=== PATIENT | female | born 1950 | race Caucasian/White ===

== ENCOUNTER → 2016-07-14 | Outpatient (CLI) | payer MEDICARE, OTHER ==
--- NOTE | 2016-07-15 13:28 | MM ---
Reason for exam: screening (asymptomatic). Last mammogram was performed 1 year and 2 months ago. History: Patient is postmenopausal. Family history of breast cancer in cousin. Benign stereotactic core biopsy of the right breast, June 27, 1998. Benign stereotactic core biopsy of the right breast, October 31, 1997. Took estrogen for 16 years beginning at age 41. Physical Findings: A clinical breast exam by your physician is recommended on an annual basis and results should be correlated with mammographic findings. MG 3D Screening Mammo W/Cad Bilateral CC and MLO view(s) were taken. Prior study comparison: May 07, 2015, bilateral MG 3d screening mammo w/cad. June 29, 2012, bilateral digital screening mammo w/CAD. There are scattered fibroglandular densities. No significant changes when compared with prior studies. ASSESSMENT: Negative, BI-RAD 1 RECOMMENDATION: Routine screening mammogram of both breasts in 1 year.
== END | disposition home or self-care (01) ==
LOC: RADMAMWWP 09:34
PROVIDERS: ATTEND Family Medicine
DX: Z12.31 Encounter for screening mammogram for malignant neoplasm of breast (principal)
CPT/HCPCS: 77063; G0202

== ENCOUNTER → 2016-11-12 | Outpatient (CLI) | payer MEDICARE, OTHER ==
--- NOTE | 2016-11-12 15:19 | XR ---
EXAMINATION TYPE: XR Hip Complete RT DATE OF EXAM: 11/12/2016 CLINICAL HISTORY: Right hip pain TECHNIQUE: AP and frogleg views of the right hip are obtained. COMPARISON: None. FINDINGS: There is no acute fracture/dislocation evident in the right hip. Metallic hardware from to deb right hip arthroplasty is present. No suspicious surrounding lucency is seen. The overlying soft tissue appears unremarkable. IMPRESSION: There is prosthesis felt satisfactory in position without radiographic evidence of compl ication.
== END ==
LOC: RADXRMAIN 14:58
PROVIDERS: ATTEND Family Medicine
DX: M25.551 Pain in right hip (principal)
CPT/HCPCS: 73502

== ENCOUNTER → 2018-09-27 | Outpatient (CLI) | payer MEDICARE, OTHER ==
--- NOTE | 2018-09-27 14:25 | XR ---
EXAMINATION TYPE: XR toes LT DATE OF EXAM: 09/27/2018 COMPARISON: NONE HISTORY: Pain in the left great toe with prior great toe surgery approximately 10 years ago. TECHNIQUE: 3 views of the left foot. FINDINGS: Although there is a subtle lucency through the proximal phalanx laterally this extends past the cortex and appears to relate to and overlying structure/skinfold. This is not reproduced on the oblique or lateral view and therefore no acute fracture is seen. First metatarsal phalangeal prosthes is from prior osteotomy maintains normal alignment. Mild soft tissue swelling is seen without radiopa que foreign body. IMPRESSION: Normal alignment without acute fracture or dislocation of the left great toe. Mild soft t issue swelling is seen.
== END | disposition home or self-care (01) ==
LOC: RADXRMAIN 13:11
PROVIDERS: ATTEND Family Medicine
DX: M79.89 Other specified soft tissue disorders (principal)

== ENCOUNTER → 2019-01-19 | Outpatient (CLI) | payer MEDICARE, OTHER ==
--- NOTE | 2019-01-19 11:01 | US ---
EXAMINATION TYPE: US thyroid st tissue head/neck DATE OF EXAM: 01/19/2019 COMPARISON: NONE CLINICAL HISTORY: R22.0 Swelling, mass and palpable abnormality. Lump behind left ear. TECHNIQUE/FINDINGS: Targeted ultrasound was performed for the palpable abnormality in grayscale and c olor imaging around the patient's left ear. Corresponding to the palpable abnormality there is a supe rficial complex cystic mass with posterior enhancement seen behind left ear measuring .8 x .8 x .9 cm . No internal vascularity is seen. IMPRESSION: Superficial, complex, periventricular 0.9 cm cystic mass corresponds to the palpable abnormality. Thi s most commonly represents a sebaceous cyst. Surgical excision could be considered. If excision is fo rgone short-term follow-up ultrasound in 3-6 months could ensure resolution.
== END | disposition home or self-care (01) ==
LOC: RADUSWWP 10:25
PROVIDERS: ATTEND Family Medicine
DX: R22.0 Localized swelling, mass and lump, head (principal)
CPT/HCPCS: 76536

== ENCOUNTER → 2019-02-07 | Outpatient (CLI) | payer MEDICARE, OTHER ==
--- NOTE | 2019-02-08 12:06 | MM ---
Reason for exam: screening (asymptomatic). Last mammogram was performed 2 years and 7 months ago. History: Patient is postmenopausal. Family history of breast cancer in cousin. Benign stereotactic core biopsy of the right breast, June 27, 1998. Benign stereotactic core biopsy of the right breast, October 31, 1997. Took estrogen for 16 years beginning at age 41. Physical Findings: A clinical breast exam by your physician is recommended on an annual basis and results should be correlated with mammographic findings. MG 3D Screening Mammo W/Cad Bilateral CC and MLO view(s) were taken. Prior study comparison: July 14, 2016, bilateral MG 3d screening mammo w/cad. May 07, 2015, bilateral MG 3d screening mammo w/cad. The breast tissue is heterogeneously dense. This may lower the sensitivity of mammography. There are benign appearing round calcifications bilaterally. Previous mammotome biopsy in the right breast x 2. There is no discrete abnormality. ASSESSMENT: Benign, BI-RAD 2 RECOMMENDATION: Routine screening mammogram of both breasts in 1 year.
== END ==
LOC: RADMAMWWP 08:50
PROVIDERS: ATTEND Family Medicine
DX: Z12.31 Encounter for screening mammogram for malignant neoplasm of breast (principal)
CPT/HCPCS: 77063; 77067

== ENCOUNTER 2019-10-31 12:52 | Emergency (ER) | payer MEDICARE, OTHER ==
[2019-10-31 13:10] VITALS: TEMP 97.9
[2019-10-31] MEDS ORDERED: SODIUM CHLORIDE 0.9% 1,000 ML IV STA (13:30)
[2019-10-31] MEDS ORDERED: MECLIZINE 12.5 MG TAB PO STA (13:30)
--- NOTE | 2019-10-31 13:44 | ED ---
Dizziness HPI - General Chief Complaint: Dizziness Stated Complaint: Dizziness Time Seen by Provider: 10/31/19 13:14 Source: patient Mode of arrival: wheelchair Limitations: no limitations - History of Present Illness Initial Comments: This a 60-year-old female with no prior history of neurological disorders or vertigo who states she woke up this morning dizzy and states she still has episodes of dizziness especially when she is in upright position or with head movement. No recent colds flu fevers chills nausea vomiting sweats no cough or phlegm production. She states for the most part she sustained home because of the current pandemic. No focal weakness no other modifying factors at this time. MD Complaint: dizziness - Related Data Home Medications Medication Instructions Recorded Confirmed DULoxetine HCL [Cymbalta] 60 mg PO BID 10/31/19 10/31/19 Lansoprazole 15 mg PO DAILY 10/31/19 10/31/19 Lisinopril [Zestril] 10 mg PO DAILY 10/31/19 10/31/19 Meloxicam [Mobic] 15 mg PO DAILY 10/31/19 10/31/19 QUEtiapine [SEROquel] 25 mg PO HS 10/31/19 10/31/19 Simvastatin [Zocor] 40 mg PO HS 10/31/19 10/31/19 Previous Rx's Medication Instructions Recorded Meclizine [Antivert] 25 mg PO TID #20 tab 10/31/19 Allergies Allergy/AdvReac Type Severity Reaction Status Date / Time hydromorphone [From Dilaudid] Allergy Nausea & Verified 10/31/19 14:46 Vomiting Iodinated Contrast Media Allergy Rash/Hives Verified 10/31/19 14:46 meperidine [From Demerol] Allergy Nausea & Verified 10/31/19 14:46 Vomiting Review of Systems ROS Statement: Those systems with pertinent positive or pertinent negative responses have been documented in the HPI. ROS Other: All systems not noted in ROS Statement are negative. Past Medical History Past Medical History: Hyperlipidemia, Hypertension History of Any Multi-Drug Resistant Organisms: None Reported Past Surgical History: Hysterectomy, Orthopedic Surgery Additional Past Surgical History / Comment(s): rhinoplasty Past Psychological History: No Psychological Hx Reported Smoking Status: Never smoker Past Alcohol Use History: None Reported Past Drug Use History: None Reported General Exam - General Exam Comments Initial Comments: This is a well-developed well-nourished awake alert oriented 3 female Limitations: no limitations General appearance: alert, in no apparent distress Head exam: Present: atraumatic, normocephalic, normal inspection Eye exam: Present: normal appearance, PERRL, EOMI. Absent: scleral icterus, conjunctival injection, periorbital swelling ENT exam: Present: normal exam, mucous membranes moist Neck exam: Present: normal inspection, full ROM, other (No stridor JVD or bruits). Absent: tenderness, meningismus, lymphadenopathy Respiratory exam: Present: normal lung sounds bilaterally. Absent: respiratory distress, wheezes, rales, rhonchi, stridor Cardiovascular Exam: Present: regular rate, normal rhythm, normal heart sounds. Absent: systolic murmur, diastolic murmur, rubs, gallop, clicks GI/Abdominal exam: Present: soft, normal bowel sounds. Absent: distended, tenderness, guarding, rebound, rigid Extremities exam: Present: normal inspection, full ROM, normal capillary refill. Absent: tenderness, pedal edema, joint swelling, calf tenderness Back exam: Present: normal inspection Neurological exam: Present: alert, oriented X3, CN II-XII intact Psychiatric exam: Present: normal affect, normal mood Skin exam: Present: warm, dry, intact, normal color. Absent: rash Course Vital Signs 10/31/19 13:01 Temperature 97.9 F Pulse Rate 85 Respiratory 18 Rate Blood Pressure 154/80 O2 Sat by Pulse 97 Oximetry EKG Findings - EKG Results: EKG: interpreted by ERMD, sinus rhythm (Sinus rhythm rate of 86 FL interval 168 QRS duration 92 QT since QTC 394/471 evidence of possible old inferior changes) Medical Decision Making - Medical Decision Making Patient is feeling improved she'll be discharged the presentation is consistent with benign proximal vertigo. We did discuss this. Patient will be discharged and follow-up with her doctor return when necessary - Lab Data Result diagrams: 10/31/19 13:56 10/31/19 13:56 Lab Results 10/31/19 10/31/19 10/31/19 Range/Units 13:56 13:56 13:56 WBC 7.9 (3.8-10.6) k/uL RBC 4.68 (3.80-5.40) m/uL Hgb 13.6 (11.4-16.0) gm/dL Hct 41.6 (34.0-46.0) % MCV 88.8 (80.0-100.0) fL MCH 29.0 (25.0-35.0) pg MCHC 32.7 (31.0-37.0) g/dL RDW 13.0 (11.5-15.5) % Plt Count 339 (150-450) k/uL Neutrophils % 67 % Lymphocytes % 21 % Monocytes % 6 % Eosinophils % 3 % Basophils % 1 % Neutrophils # 5.3 (1.3-7.7) k/uL Lymphocytes # 1.6 (1.0-4.8) k/uL Monocytes # 0.5 (0-1.0) k/uL Eosinophils # 0.3 (0-0.7) k/uL Basophils # 0.1 (0-0.2) k/uL Sodium 137 (137-145) mmol/L Potassium 4.5 (3.5-5.1) mmol/L Chloride 107 (98-107) mmol/L Carbon Dioxide 22 (22-30) mmol/L Anion Gap 8 mmol/L BUN 14 (7-17) mg/dL Creatinine 0.72 (0.52-1.04) mg/dL Est GFR (CKD-EPI)AfAm >90 (>60 ml/min/1.73 sqM) Est GFR (CKD-EPI)NonAf 87 (>60 ml/min/1.73 sqM) Glucose 134 H (74-99) mg/dL Calcium 9.4 (8.4-10.2) mg/dL Magnesium 2.0 (1.6-2.3) mg/dL Total Bilirubin 0.5 (0.2-1.3) mg/dL AST 31 (14-36) U/L ALT 19 (4-34) U/L Alkaline Phosphatase 117 (38-126) U/L Troponin I <0.012 (0.000-0.034) ng/mL Total Protein 6.9 (6.3-8.2) g/dL Albumin 4.3 (3.5-5.0) g/dL Urine Color Urine Appearance (Clear) Urine pH (5.0-8.0) Ur Specific Jones (1.001-1.035) Urine Protein (Negative) Urine Glucose (UA) (Negative) Urine Ketones (Negative) Urine Blood (Negative) Urine Nitrite (Negative) Urine Bilirubin (Negative) Urine Urobilinogen (<2.0) mg/dL Ur Leukocyte Esterase (Negative) Urine RBC (0-5) /hpf Urine WBC (0-5) /hpf Ur Squamous Epith Cells (0-4) /hpf Urine Mucus (None) /hpf 10/31/19 Range/Units 15:27 WBC (3.8-10.6) k/uL RBC (3.80-5.40) m/uL Hgb (11.4-16.0) gm/dL Hct (34.0-46.0) % MCV (80.0-100.0) fL MCH (25.0-35.0) pg MCHC (31.0-37.0) g/dL RDW (11.5-15.5) % Plt Count (150-450) k/uL Neutrophils % % Lymphocytes % % Monocytes % % Eosinophils % % Basophils % % Neutrophils # (1.3-7.7) k/uL Lymphocytes # (1.0-4.8) k/uL Monocytes # (0-1.0) k/uL Eosinophils # (0-0.7) k/uL Basophils # (0-0.2) k/uL Sodium (137-145) mmol/L Potassium (3.5-5.1) mmol/L Chloride (98-107) mmol/L Carbon Dioxide (22-30) mmol/L Anion Gap mmol/L BUN (7-17) mg/dL Creatinine (0.52-1.04) mg/dL Est GFR (CKD-EPI)AfAm (>60 ml/min/1.73 sqM) Est GFR (CKD-EPI)NonAf (>60 ml/min/1.73 sqM) Glucose (74-99) mg/dL Calcium (8.4-10.2) mg/dL Magnesium (1.6-2.3) mg/dL Total Bilirubin (0.2-1.3) mg/dL AST (14-36) U/L ALT (4-34) U/L Alkaline Phosphatase (38-126) U/L Troponin I (0.000-0.034) ng/mL Total Protein (6.3-8.2) g/dL Albumin (3.5-5.0) g/dL Urine Color Yellow Urine Appearance Clear (Clear) Urine pH 5.5 (5.0-8.0) Ur Specific Jones 1.008 (1.001-1.035) Urine Protein Negative (Negative) Urine Glucose (UA) Negative (Negative) Urine Ketones Negative (Negative) Urine Blood Trace H (Negative) Urine Nitrite Negative (Negative) Urine Bilirubin Negative (Negative) Urine Urobilinogen <2.0 (<2.0) mg/dL Ur Leukocyte Esterase Moderate H (Negative) Urine RBC 2 (0-5) /hpf Urine WBC 12 H (0-5) /hpf Ur Squamous Epith Cells <1 (0-4) /hpf Urine Mucus Rare H (None) /hpf - Radiology Data Radiology results: report reviewed (I did review the imaging and report no acute findings.), image reviewed Disposition Clinical Impression: Benign paroxysmal positional vertigo Disposition: HOME SELF-CARE Condition: Good Instructions (If sedation given, give patient instructions): Benign Paroxysmal Positional Vertigo (ED) Prescriptions: Meclizine [Antivert] 25 mg PO TID #20 tab Is patient prescribed a controlled substance at d/c from ED?: No Referrals: Ismael Boss DO [Primary Care Provider] - 1-2 days
[2019-10-31 14:11] LABS: Basophils # (A) 0.1 k/uL (0-0.2); Basophils % (A) 1 %; Eosinophils # (A) 0.3 k/uL (0-0.7); Eosinophils % (A) 3 %; HCT 41.6 % (34.0-46.0); HGB 13.6 gm/dL (11.4-16.0); Lymphocytes # (A) 1.6 k/uL (1.0-4.8); Lymphocytes % (A) 21 %; MCHC 32.7 g/dL (31.0-37.0); MCV 88.8 fL (80.0-100.0); Mean Platelet Volume 6.9; Monocytes # (A) 0.5 k/uL (0-1.0); Monocytes % (A) 6 %; Neutrophils # (A) 5.3 k/uL (1.3-7.7); Neutrophils % (A) 67 %; Platelet Count 339 k/uL (150-450); RBC 4.68 m/uL (3.80-5.40); WBC 7.9 k/uL (3.8-10.6)
[2019-10-31 14:20] LABS: ALT 19 U/L (4-34); AST 31 U/L (14-36); African American GFR (CKD) >90 (>60 ml/min/1.73 sqM); Albumin 4.3 g/dL (3.5-5.0); Alkaline Phosphatase 117 U/L (38-126); Anion Gap 8 mmol/L; Blood Urea Nitrogen 14 mg/dL (7-17); Calcium 9.4 mg/dL (8.4-10.2); Carbon Dioxide 22 mmol/L (22-30); Chloride 107 mmol/L (98-107); Glucose 134 mg/dL (74-99); Non-African American GFR(CKD) 87 (>60 ml/min/1.73 sqM); Potassium 4.5 mmol/L (3.5-5.1); Sodium 137 mmol/L (137-145); Total Bilirubin 0.5 mg/dL (0.2-1.3); Total Protein 6.9 g/dL (6.3-8.2)
--- NOTE | 2019-10-31 14:37 | XR ---
EXAMINATION TYPE: XR chest 2V DATE OF EXAM: 10/31/2019 COMPARISON: 04/30/2015 INDICATION: Dizziness TECHNIQUE: Frontal and lateral views of the chest are obtained. FINDINGS: The heart size is normal. The pulmonary vasculature is normal. The lungs are clear. IMPRESSION: 1. No acute pulmonary process.
--- NOTE | 2019-10-31 15:11 | CT ---
EXAMINATION TYPE: CT brain wo con DATE OF EXAM: 10/31/2019 COMPARISON: None HISTORY: dizziness CT DLP: 1095.4 mGycm Automated exposure control for dose reduction was used. CT brain performed using departmental protoco l. FINDINGS: There is no hemorrhage or hydrocephalus. Corpus callosum, pituitary, cervical medullary junction, cer ebellopontine angles are unremarkable. Calvarium is intact. Orbits show symmetric appearance. Paranas al sinuses and mastoid air cells as visualized are normal. Scattered white matter low-attenuation is noted. Cortical atrophy is mild. 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 NO ACUTE BRAIN ABNORMALITIES EVIDENT. CONSIDER FOLLOW-UP WITH MRI INDICATED.
[2019-10-31 15:39] LABS: Appearance,Urine Clear (Clear); Bilirubin,Urine Negative (Negative); Blood,Urine Trace (Negative); Color,Urine Yellow; Glucose,Urine (UA) Negative (Negative); Ketones,Urine Negative (Negative); Leukocyte Esterase,Urine Moderate (Negative); Mucus,Urine Rare /hpf; Nitrite,Urine Negative (Negative); PH, Urine 5.5 (5.0-8.0); Protein,Urine Negative (Negative); RBC,Urine 2 /hpf (0-5); Specific Gravity,Urine 1.008 (1.001-1.035); Squamous Epithelial Cell,Urine <1 /hpf (0-4); Urobilinogen,Urine <2.0 mg/dL (<2.0); WBC,Urine 12 /hpf (0-5)
[2019-10-31 16:11] VITALS: BP 131/77; PULSE 68; RESP 16
== END 2019-10-31 16:11 | disposition home or self-care (01) ==
LOC: EC 12:52
DX: H81.10 Benign paroxysmal vertigo, unspecified ear (principal); E78.5 Hyperlipidemia, unspecified; I10 Essential (primary) hypertension; Z79.1 Long term (current) use of non-steroidal anti-inflammatories (NSAID); Z79.899 Other long term (current) drug therapy; Z88.5 Allergy status to narcotic agent; Z91.041 Radiographic dye allergy status
CPT/HCPCS: 36415; 70450; 71046; 80053; 81001; 83735; 84484; 85025; 93005; 96360; 96361; 99284

== ENCOUNTER → 2020-05-31 | Outpatient (CLI) | payer MEDICARE ==
--- NOTE | 2020-06-04 12:19 | MM ---
Reason for exam: screening (asymptomatic). Last mammogram was performed 1 year and 4 months ago. History: Patient is postmenopausal. Family history of breast cancer in cousin. Benign stereotactic core biopsy of the right breast, June 27, 1998. Benign stereotactic core biopsy of the right breast, October 31, 1997. Took hormonal contraceptives for 3 months. Took estrogen for 16 years beginning at age 41. Physical Findings: A clinical breast exam by your physician is recommended on an annual basis and results should be correlated with mammographic findings. MG 3D Screening Mammo W/Cad Bilateral CC and MLO view(s) were taken. Prior study comparison: February 07, 2019, bilateral MG 3d screening mammo w/cad. July 14, 2016, bilateral MG 3d screening mammo w/cad. There are scattered fibroglandular densities. No significant changes when compared with prior studies. ASSESSMENT: Benign, BI-RAD 2 RECOMMENDATION: Routine screening mammogram of both breasts in 1 year.
== END | disposition home or self-care (01) ==
LOC: RADMAMWWP 09:18
PROVIDERS: ATTEND Family Medicine
DX: Z12.31 Encounter for screening mammogram for malignant neoplasm of breast (principal)
CPT/HCPCS: 77063; 77067

== ENCOUNTER → 2022-07-15 | Outpatient (CLI) | payer MEDICARE ==
--- NOTE | 2022-07-15 11:16 | XR ---
EXAMINATION TYPE: XR shoulder complete LT DATE OF EXAM: 07/15/2022 COMPARISON: NONE HISTORY: Pain TECHNIQUE: Shoulder examined in 3 projections. FINDINGS: The humeral head articulates with the glenoid. There is narrowing of the glenohumeral joint space. The acromio-clavicular junction is normal. No acute fractures or dislocations are evident. A follow up study can be performed 7-10 days from acute trauma for continued pain. MRI can be perfor med if soft tissue evaluation would be of benefit. IMPRESSION: 1. No acute osseous shoulder abnormality. 2. Osteoarthritic degenerative changes glenohumeral junction.
== END | disposition home or self-care (01) ==
LOC: RADXRMAIN 10:14
PROVIDERS: ATTEND Family Medicine
DX: M19.012 Primary osteoarthritis, left shoulder (principal)

== ENCOUNTER → 2022-09-08 | Outpatient (CLI) | payer MEDICARE ==
--- NOTE | 2022-09-08 16:04 | XR ---
EXAMINATION TYPE: XR wrist limited 2 views LT, XR Hip Limited 2 views LT DATE OF EXAM: 09/08/2022 COMPARISON: NONE HISTORY: 71-year-old female M25.552, M25.532 FINDINGS: Left wrist: 2 views without acute fracture, subluxation, dislocation seen. Possible prominence of the scapholunat e interval. Moderate degenerative change first CMC joint with joint space narrowing and marginal spur ring. Left hip: Both acetabular cup and femoral stem components of the prosthesis appear well seated without progress franck fracture. Alignment grossly anatomic. Left-sided pelvic platelets. Small areas of heterotopic oss ification superiorly at the hip joint. IMPRESSION: 1. Left wrist: 2 views without acute osseous abnormality seen. Questionable prominence to the scaphol unate interval. A navicular view can better evaluate for any potential abnormal scapholunate interval widening. Mild to moderate osteoarthritic change at the base of the thumb. 2. Left hip: Minimal heterotopic ossification superior to the joint. Otherwise, uncomplicated left hi p total arthroplasty.
== END | disposition home or self-care (01) ==
LOC: RADXRMAIN 11:13
PROVIDERS: ATTEND Family Medicine
DX: M19.042 Primary osteoarthritis, left hand (principal); M25.552 Pain in left hip
CPT/HCPCS: 73501

== ENCOUNTER → 2022-09-11 | Outpatient (CLI) | payer MEDICARE ==
--- NOTE | 2022-09-14 18:09 | XR ---
EXAMINATION TYPE: XR wrist limited LT DATE OF EXAM: 09/11/2022 COMPARISON: Previous 2 views 09/08/2022 HISTORY: 71-year-old female R19.5 TECHNIQUE: Dedicated oblique and navicular views FINDINGS: These additional 2 views confirm abnormal widening at the scapholunate interval of 4 mm. Redemonstrat ed [id number] degenerative change at the first CMC and triscaphe joints. Otherwise, no acute fr actures seen. IMPRESSION: 1. Additional 2 views confirms abnormal widening at the scapholunate interval compatible with gilma s capholunate ligament tear of indeterminate age. No abnormal dorsal tilt of the lunate on the previous lateral view. Correlate for any symptoms of mid carpal instability. 2. Redemonstrated mild to moderate osteoarthritic change at the base of the thumb.
== END | disposition home or self-care (01) ==
LOC: RADXRMAIN 10:57
PROVIDERS: ATTEND Family Medicine
DX: M19.032 Primary osteoarthritis, left wrist (principal)

== ENCOUNTER → 2023-07-02 | Outpatient (CLI) | payer MEDICARE ==
--- NOTE | 2023-07-05 15:10 | MM ---
Reason for Exam: Screening (asymptomatic). Last mammogram was performed 1 year(s) and 1 month(s) ago. Patient History: Menarche at age 14. First Full-Term at age 20. Left ovary removed at age 41. Right ovary removed at age 41. Hysterectomy at age 35. Postmenopausal. Patient has history of breast feeding. Estrogen, starting at age 41 for 16 years. Hormonal Contraceptives for 3 months. 06/27/1998, Benign Stereotactic Core Biopsy on the right side. 10/31/1997, Benign Stereotactic Core Biopsy on the right side. Maternal cousin had breast cancer. Risk Values: Brooke 5 year model risk: 2.2%. NCI Lifetime model risk: 5.6%. Prior Study Comparison: 02/07/2019 Bilateral Screening Mammogram, [facility]. 05/31/2020 Bilateral Screening Mammogram, [facility]. 06/09/2022 Bilateral MG 3D screening mammo w/cad, [facility]. Tissue Density: The breasts are almost entirely fatty. Findings: Analyzed By CAD. There is no suspicious group of microcalcifications or new suspicious mass. Overall Assessment: Negative, BI-RAD 1 Management: Screening Mammogram of both breasts in [address] [facility] will attempt to contact patient to return for supplemental views and ultrasound if indicated. Patient should continue monthly self-breast exams. A clinical breast exam by your physician is recommended on an annual basis. This exam should not preclude additional follow-up of suspicious palpable abnormalities. Note on Brooke scores and lifetime risk: 1. A Brooke score greater than 3% is considered moderate risk. If this is the case, consider specialist referral to assess eligibility for a risk reducing agent. 2. If overall lifetime risk for the development of breast cancer is 20% or higher, the patient may qualify for future screening with alternating mammogram and breast MRI. Electronically signed and approved by: Cristi Severino DO
== END | disposition home or self-care (01) ==
LOC: RADMAMWWP 11:13
PROVIDERS: ATTEND Family Medicine
DX: Z12.31 Encounter for screening mammogram for malignant neoplasm of breast (principal); Z78.0 Asymptomatic menopausal state; Z80.3 Family history of malignant neoplasm of breast
CPT/HCPCS: 77063; 77067

== ENCOUNTER → 2024-07-03 | Outpatient (CLI) | payer MEDICARE ==
--- NOTE | 2024-07-03 10:22 | MM ---
Reason for Exam: Screening (asymptomatic). Last screening mammogram was performed 12 month(s) ago. Patient History: Menarche at age 14. First Full-Term at age 20. Left ovary removed at age 41. Right ovary removed at age 41. Hysterectomy at age 35. Postmenopausal. Patient has history of breast feeding. Estrogen, starting at age 41 for 16 years. Hormonal Contraceptives for 3 months. 06/27/1998, Benign Stereotactic Core Biopsy on the right side. 10/31/1997, Benign Stereotactic Core Biopsy on the right side. Maternal cousin had breast cancer. Paternal aunt had breast cancer. Risk Values: Brooke 5 year model risk: 2.2%. NCI Lifetime model risk: 5.3%. Prior Study Comparison: 05/31/2020 Bilateral Screening Mammogram, [facility]. 06/09/2022 Bilateral MG 3D screening mammo w/cad, [facility]. 07/02/2023 Bilateral MG 3D screening mammo w/cad, [facility]. Tissue Density: There are scattered areas of fibroglandular density. Findings: Analyzed By CAD. There are 2 biopsy clips in the right breast redemonstrated. There are few tiny round calcifications bilaterally redemonstrated. Benign-appearing bilateral axillary lymph nodes are again seen. There is a focal asymmetry in the middle depth medial aspect left breast that is more prominent from prior study with corresponding abnormality not clearly seen on MLO view. Overall Assessment: Incomplete: need additional imaging evaluation, BI-RAD 0 Management: Diagnostic Mammogram of the left breast. Return for spot magnification 3-D cc and 3-D true lateral views left breast. Patient should continue monthly self-breast exams. A clinical breast exam by your physician is recommended on an annual basis. This exam should not preclude additional follow-up of suspicious palpable abnormalities. Note on Brooke scores and lifetime risk: 1. A Brooke score greater than 3% is considered moderate risk. If this is the case, consider specialist referral to assess eligibility for a risk reducing agent. 2. If overall lifetime risk for the development of breast cancer is 20% or higher, the patient may qualify for future screening with alternating mammogram and breast MRI. [facility], , 07/03/2024 10:19 AM. Electronically signed and approved by: Saulo Mauro M.D.
== END | disposition home or self-care (01) ==
LOC: RADMAMWWP 09:36
PROVIDERS: ATTEND Family Medicine
DX: Z12.31 Encounter for screening mammogram for malignant neoplasm of breast (principal); R92.323 Mammographic fibroglandular density, bilateral breasts; R92.1 Mammographic calcification found on diagnostic imaging of breast; Z78.0 Asymptomatic menopausal state; Z80.3 Family history of malignant neoplasm of breast; Z92.0 Personal history of contraception
CPT/HCPCS: 77067

== ENCOUNTER → 2024-07-05 | Outpatient (CLI) | payer MEDICARE ==
--- NOTE | 2024-07-06 12:51 | MM ---
Reason for Exam: Additional evaluation requested from abnormal screening. Last screening mammogram was performed less than 1 month ago. Patient History: Menarche at age 14. First Full-Term at age 20. Left ovary removed at age 41. Right ovary removed at age 41. Hysterectomy at age 35. Postmenopausal. Patient has history of breast feeding. Estrogen, starting at age 41 for 16 years. Hormonal Contraceptives for 3 months. 06/27/1998, Benign Stereotactic Core Biopsy on the right side. 10/31/1997, Benign Stereotactic Core Biopsy on the right side. Maternal cousin had breast cancer. Paternal aunt had breast cancer. Risk Values: Brooke 5 year model risk: 2.2%. NCI Lifetime model risk: 5.3%. Prior Study Comparison: 06/09/2022 Bilateral MG 3D screening mammo w/cad, [facility]. 07/02/2023 Bilateral MG 3D screening mammo w/cad, [facility]. 07/03/2024 Bilateral MG screening mammo w CAD, [facility]. Tissue Density: Left: There are scattered areas of fibroglandular density. Findings: Analyzed By CAD. No distinct new lesion persists on additional views. Overall Assessment: Negative, BI-RAD 1 Management: Screening Mammogram of both breasts in 1 year. Return to routine follow-up. Results were given to the patient verbally at the time of exam. Patient should continue monthly self-breast exams. A clinical breast exam by your physician is recommended on an annual basis. This exam should not preclude additional follow-up of suspicious palpable abnormalities. Note on Brooke scores and lifetime risk: 1. A Brooke score greater than 3% is considered moderate risk. If this is the case, consider specialist referral to assess eligibility for a risk reducing agent. 2. If overall lifetime risk for the development of breast cancer is 20% or higher, the patient may qualify for future screening with alternating mammogram and breast MRI. [facility], , 07/05/2024 3:24 PM. Electronically signed and approved by: Saulo Mauro M.D.
== END | disposition home or self-care (01) ==
LOC: RADMAMWWP 14:49
PROVIDERS: ATTEND Family Medicine
DX: R92.8 Other abnormal and inconclusive findings on diagnostic imaging of breast (principal); R92.323 Mammographic fibroglandular density, bilateral breasts; Z78.0 Asymptomatic menopausal state; Z80.3 Family history of malignant neoplasm of breast
CPT/HCPCS: 77061; 77065